=== PATIENT | male | born 1960 | race American Indian/Alaskan Native ===

== ENCOUNTER 2017-10-08 05:07 | Inpatient (IN) | payer SELFPAY ==
[2017-10-08] MEDS ORDERED: ASPIRIN PO ONE (05:39)
[2017-10-08 05:57] LABS: Basophils % (Auto) 0.4 % (0.0-1.8); Eosinophils # (Auto) 0.2 K/mm3 (0.0-0.4); Eosinophils % (Auto) 2.5 % (0.0-4.3); Hematocrit 41.9 % (35.5-45.6); Hemoglobin 13.8 gm/dl (11.8-15.2); Lymphocytes # (Auto) 1.9 K/mm3 (1.2-5.4); Lymphocytes % (Auto) 22.3 % (13.4-35.0); Mean Corpuscular HGB Conc 33 % (32-34); Mean Corpuscular Hemoglobin 30 pg (28-32); Mean Corpuscular Volume 89 fl (84-94); Monocytes % (Auto) 11.6 % (0.0-7.3); Platelet Count 275 K/mm3 (140-440); Red Blood Count 4.68 M/mm3 (3.65-5.03); Red Cell Distribution Width 12.8 % (13.2-15.2)
[2017-10-08 06:12] LABS: BUN/Creatinine Ratio 18; Blood Urea Nitrogen 16 mg/dL (9-20); Calcium 9.1 mg/dL (8.4-10.2); Hemolysis Index 0
--- NOTE | 2017-10-08 10:19 | Emergency Department Report ---
ED Chest Pain HPI - General Chief Complaint: Chest Pain Stated Complaint: CP Time Seen by Provider: 10/08/17 10:17 Source: patient Mode of arrival: Ambulatory Limitations: No Limitations - History of Present Illness Initial Comments: She is a 56-year-old male that presents to the emergency room with complaints of chest pain 3 days. Patient states that the pain is radiating to his neck. Patient's also complains of a sore throat. Patient denies diaphoresis and shortness of breath. However patient states pain is worse with inspiration. Patient states no change in pain with palpation. Patient states the pain is better with rest. MD Complaint: chest pain -: Sudden, days(s) (3 days) Onset: during rest Pain Location: substernal, left chest Pain Radiation: neck Severity: moderate Severity scale (0 -10): 6 Quality: pressure Consistency: intermittent Improves With: remaining still Worsens With: inspiration, movement Treatments Prior to Arrival: none Aspirin use within the Past 7 Days: (0) No - Related Data Home Medications Medication Instructions Recorded Confirmed Last Taken No Known Home Medications [No 10/08/17 10/08/17 Unknown Reported Home Medications] Allergies Allergy/AdvReac Type Severity Reaction Status Date / Time No Known Allergies Allergy Verified 10/08/17 10:43 Heart Score - HEART Score History: Slightly suspicious EKG: Normal Age: 45-65 Risk factors: No known risk factors Troponin: < normal limit HEART Score: 1 ED Review of Systems ROS: Stated complaint: CP Other details as noted in HPI Comment: All other systems reviewed and negative Constitutional: denies: chills, fever Eyes: denies: eye pain, eye discharge, vision change ENT: denies: ear pain, throat pain Respiratory: denies: cough, shortness of breath, wheezing Cardiovascular: chest pain. denies: palpitations Endocrine: no symptoms reported Gastrointestinal: denies: abdominal pain, nausea, diarrhea Genitourinary: denies: urgency, dysuria Musculoskeletal: denies: back pain, joint swelling, arthralgia Skin: denies: rash, lesions Neurological: denies: headache, weakness, paresthesias Psychiatric: denies: anxiety, depression Hematological/Lymphatic: denies: easy bleeding, easy bruising ED Past Medical Hx - Past Medical History Previous Medical History?: Yes Hx Hypertension: Yes - Surgical History Past Surgical History?: No - Family History Family history: hypertension - Social History Smoking Status: Current Every Day Smoker Substance Use Type: Alcohol - Medications Home Medications: Home Medications Medication Instructions Recorded Confirmed Last Taken Type No Known Home Medications [No 10/08/17 10/08/17 Unknown History Reported Home Medications] ED Physical Exam - General Limitations: No Limitations General appearance: alert, in no apparent distress - Head Head exam: Present: atraumatic, normocephalic - Eye Eye exam: Present: normal appearance - ENT ENT exam: Present: mucous membranes moist - Neck Neck exam: Present: normal inspection - Respiratory Respiratory exam: Present: normal lung sounds bilaterally. Absent: respiratory distress - Cardiovascular Cardiovascular Exam: Present: regular rate, normal rhythm. Absent: systolic murmur, diastolic murmur, rubs, gallop - GI/Abdominal GI/Abdominal exam: Present: soft, normal bowel sounds - Rectal Rectal exam: Present: deferred - Extremities Exam Extremities exam: Present: normal inspection - Back Exam Back exam: Present: normal inspection - Neurological Exam Neurological exam: Present: alert, oriented X3 - Psychiatric Psychiatric exam: Present: normal affect, normal mood - Skin Skin exam: Present: warm, dry, intact, normal color. Absent: rash ED Course Vital Signs 10/08/17 10/08/17 10/08/17 05:30 10:27 10:30 Temperature 98 F Pulse Rate 102 H 96 H 89 Respiratory 16 9 L Rate Blood Pressure 143/95 180/98 O2 Sat by Pulse 99 100 Oximetry 10/08/17 10:45 Temperature Pulse Rate 94 H Respiratory 14 Rate Blood Pressure 180/98 O2 Sat by Pulse 99 Oximetry - Reevaluation(s) Reevaluation #1: Will admit admit patient to rule out ACS. Discussed patient with hospitalist. Hospitalist agreed to admit. 10/08/17 11:35 LEXI score - Lexi Score Age > 65: (0) No Aspirin use within the Past 7 Days: (0) No 3 or more CAD Risk Factors: (0) No 2 or more Angina events in past 24 hrs: (0) No Known CAD with more than 50% Stenosis: (0) No Elevated Cardiac Markers: (0) No ST Deviation Greater than 0.5mm: (0) No LEXI Score: 0 ED Medical Decision Making - Lab Data Result diagrams: 10/08/17 05:42 10/08/17 05:42 - EKG Data -: EKG Interpreted by Me EKG shows normal: sinus rhythm Rate: normal - EKG Data Interpretation: no acute changes, normal EKG - Differential Diagnosis indigestion. Chest pain. ACS. Critical care attestation.: If time is entered above; I have spent that time in minutes in the direct care of this critically ill patient, excluding procedure time. ED Disposition Clinical Impression: Chest pain, Hypertension Disposition: OP ADMIT IP TO THIS HOSP Is pt being admited?: Yes Does the pt Need Aspirin: No Condition: Serious Instructions: Hypertension (ED) Time of Disposition: 11:45
[2017-10-08] MEDS ORDERED: ASPIRIN ONE (10:45)
[2017-10-08] MEDS ORDERED: MORPHINE ONE (13:55)
--- NOTE | 2017-10-08 14:01 | XRay Report ---
PORTABLE CHEST: Chest pain. An AP portable view of the chest demonstrates a normal cardiac contour considering the limits of this technique. The lungs are clear with no evidence of infiltrate, fluid or failure. IMPRESSION: Normal portable chest.
[2017-10-08] MEDS ORDERED: LOPRESSOR IV ONE (14:36)
[2017-10-08] MEDS ORDERED: MORPHINE IV ONE (14:56)
--- NOTE | 2017-10-08 18:12 | History and Physical Report ---
History of Present Illness Date of examination: 10/08/17 Date of admission: 10/08/2017 Chief complaint: Chief complaint: Left-sided chest pain for 3 days History of present illness: History of Present Illness She is a 56-year-old male that presents to the emergency room with complaints of chest pain 3 days. Patient states that the pain is radiating to his neck. Patient's also complains of a sore throat. Patient denies diaphoresis and shortness of breath. However patient states pain is worse with inspiration. Patient states no change in pain with palpation. Patient states the pain is better with rest. Past Medical History Previous Medical History?: Yes Hx Hypertension: Yes Surgical History Past Surgical History?: No Family History Family history: hypertension Social History Smoking Status: Current Every Day Smoker Substance Use Type: Alcohol Medications Home Medications: Home Medications Medication Instructions Recorded Confirmed Last Taken Type No Known Home Medications [No 10/08/17 10/08/17 Unknown History Reported Home Medications] Review of Systems ROS: Stated complaint: CP Other details as noted in HPI Comment: All other systems reviewed and negative Constitutional: denies: chills, fever Eyes: denies: eye pain, eye discharge, vision change ENT: denies: ear pain, throat pain Respiratory: denies: cough, shortness of breath, wheezing Cardiovascular: chest pain. denies: palpitations Endocrine: no symptoms reported Gastrointestinal: denies: abdominal pain, nausea, diarrhea Genitourinary: denies: urgency, dysuria Musculoskeletal: denies: back pain, joint swelling, arthralgia Skin: denies: rash, lesions Neurological: denies: headache, weakness, paresthesias Psychiatric: denies: anxiety, depression Hematological/Lymphatic: denies: easy bleeding, easy bruising Medications and Allergies Allergies Allergy/AdvReac Type Severity Reaction Status Date / Time No Known Allergies Allergy Verified 10/08/17 10:43 Home Medications Medication Instructions Recorded Confirmed Last Taken Type No Known Home Medications [No 10/08/17 10/08/17 Unknown History Reported Home Medications] Exam - Constitutional Vitals: Temp Pulse Resp BP Pulse Ox 98 F 81 14 154/127 96 10/08/17 05:30 10/08/17 17:31 10/08/17 17:31 10/08/17 17:31 10/08/17 17:31 General appearance: Present: no acute distress, well-nourished - EENT Eyes: Present: PERRL ENT: hearing intact, clear oral mucosa - Neck Neck: Present: supple, normal ROM - Respiratory Respiratory effort: normal Respiratory: bilateral: CTA - Cardiovascular Heart rate: 80 Rhythm: regular Heart Sounds: Present: S1 & S2. Absent: rub, click - Extremities Extremities: pulses symmetrical, No edema Peripheral Pulses: within normal limits - Abdominal General gastrointestinal: Present: soft, non-tender, non-distended, normal bowel sounds Male genitourinary: Present: normal - Integumentary Integumentary: Present: clear, warm, dry - Musculoskeletal Musculoskeletal: gait normal, strength equal bilaterally - Psychiatric Psychiatric: appropriate mood/affect, intact judgment & insight - Neurologic Neurologic: CNII-XII intact, moves all extremities Results - Labs CBC & Chem 7: 10/09/17 05:01 10/09/17 05:01 Labs: Laboratory Last Values WBC 8.4 K/mm3 (4.5-11.0) 10/08/17 05:42 RBC 4.68 M/mm3 (3.65-5.03) 10/08/17 05:42 Hgb 13.8 gm/dl (11.8-15.2) 10/08/17 05:42 Hct 41.9 % (35.5-45.6) 10/08/17 05:42 MCV 89 fl (84-94) 10/08/17 05:42 MCH 30 pg (28-32) 10/08/17 05:42 MCHC 33 % (32-34) 10/08/17 05:42 RDW 12.8 % (13.2-15.2) L 10/08/17 05:42 Plt Count 275 K/mm3 (140-440) 10/08/17 05:42 Lymph % (Auto) 22.3 % (13.4-35.0) 10/08/17 05:42 Tyler % (Auto) 11.6 % (0.0-7.3) H 10/08/17 05:42 Eos % (Auto) 2.5 % (0.0-4.3) 10/08/17 05:42 Baso % (Auto) 0.4 % (0.0-1.8) 10/08/17 05:42 Lymph # 1.9 K/mm3 (1.2-5.4) 10/08/17 05:42 Tyler # 1.0 K/mm3 (0.0-0.8) H 10/08/17 05:42 Eos # 0.2 K/mm3 (0.0-0.4) 10/08/17 05:42 Baso # 0.0 K/mm3 (0.0-0.1) 10/08/17 05:42 Seg Neutrophils % 63.2 % (40.0-70.0) 10/08/17 05:42 Seg Neutrophils # 5.3 K/mm3 (1.8-7.7) 10/08/17 05:42 Sodium 138 mmol/L (137-145) 10/08/17 05:42 Potassium 4.0 mmol/L (3.6-5.0) 10/08/17 05:42 Chloride 94.5 mmol/L (98-107) L 10/08/17 05:42 Carbon Dioxide 30 mmol/L (22-30) 10/08/17 05:42 Anion Gap 18 mmol/L 10/08/17 05:42 BUN 16 mg/dL (9-20) 10/08/17 05:42 Creatinine 0.9 mg/dL (0.8-1.5) 10/08/17 05:42 Estimated GFR > 60 ml/min 10/08/17 05:42 BUN/Creatinine Ratio 18 % 10/08/17 05:42 Glucose 101 mg/dL (75-100) H 10/08/17 05:42 Calcium 9.1 mg/dL (8.4-10.2) 10/08/17 05:42 Troponin T < 0.010 ng/mL (0.00-0.029) 10/08/17 11:39 Short CBC 10/09/17 Range/Units 05:01 WBC 7.7 (4.5-11.0) K/mm3 Hgb 13.6 (11.8-15.2) gm/dl Hct 40.2 (35.5-45.6) % Plt Count 250 (140-440) K/mm3 BMP 10/09/17 05:01 Sodium 139 Potassium 4.2 Chloride 98.8 Carbon Dioxide 24 BUN 15 Creatinine 0.8 Glucose 84 Calcium 8.8 Cardiac Enzymes 10/08/17 10/08/17 10/08/17 Range/Units 08:27 11:39 18:26 Troponin T < 0.010 < 0.010 < 0.010 (0.00-0.029) ng/mL 10/09/17 10/09/17 Range/Units 00:23 05:01 Troponin T < 0.010 < 0.010 (0.00-0.029) ng/mL Liver Function 10/09/17 Range/Units 05:01 Total Bilirubin 0.40 (0.1-1.2) mg/dL AST 25 (5-40) units/L ALT 29 (7-56) units/L Alkaline Phosphatase 60 (35-129) units/L Albumin 3.2 L (3.9-5) g/dL Assessment and Plan Advance Directives: Yes (full code) VTE prophylaxis?: Chemical Plan of care discussed with patient/family: Yes - Patient Problems (1) Chest pain Current Visit: Yes Status: Acute Qualifiers: Chest pain type: unspecified Qualified Code(s): R07.9 - Chest pain, unspecified Plan to address problem: Chest pain workup. Serial cardiac enzymes and Lexiscan in the morning (2) Hypertension Current Visit: Yes Status: Acute Qualifiers: Hypertension type: essential hypertension Qualified Code(s): I10 - Essential (primary) hypertension Plan to address problem: Newly diagnosed hypertension.. Patient started on losartan 100 daily (3) DVT prophylaxis Current Visit: Yes Status: Acute Plan to address problem: On heparin
[2017-10-08] MEDS ORDERED: MORPHINE IV PRN (18:13)
[2017-10-08] MEDS ORDERED: SODIUM CHLORIDE FLUSH SYRINGE 10 ML IV PRN (18:13)
[2017-10-08] MEDS ORDERED: AMBIEN PO PRN (18:13)
[2017-10-08] MEDS ORDERED: TYLENOL PO PRN (18:13)
[2017-10-08] MEDS ORDERED: ZOFRAN IV PRN (18:13)
[2017-10-08] MEDS ORDERED: PERCOCET 5/325 PO PRN (18:13)
[2017-10-08] MEDS ORDERED: DILAUDID IV PRN (18:13)
[2017-10-08] MEDS: MORPHINE IV PRN (22:52)
[2017-10-08] MEDS: SODIUM CHLORIDE FLUSH SYRINGE 10 ML IV SCH (22:56)
[2017-10-08] MEDS: HEPARIN SUB-Q SCH (22:56)
--- NOTE | 2017-10-08 23:58 | Event Note ---
Date: 10/08/17
[2017-10-09 05:56] LABS: Basophils % (Auto) 0.2 % (0.0-1.8); Eosinophils # (Auto) 0.2 K/mm3 (0.0-0.4); Eosinophils % (Auto) 2.6 % (0.0-4.3); Hematocrit 40.2 % (35.5-45.6); Hemoglobin 13.6 gm/dl (11.8-15.2); Lymphocytes # (Auto) 2.3 K/mm3 (1.2-5.4); Lymphocytes % (Auto) 29.9 % (13.4-35.0); Mean Corpuscular HGB Conc 34 % (32-34); Mean Corpuscular Hemoglobin 30 pg (28-32); Mean Corpuscular Volume 89 fl (84-94); Monocytes # (Auto) 1.1 K/mm3 (0.0-0.8); Monocytes % (Auto) 14.1 % (0.0-7.3); Platelet Count 250 K/mm3 (140-440); Red Blood Count 4.54 M/mm3 (3.65-5.03); Red Cell Distribution Width 12.5 % (13.2-15.2)
[2017-10-09 06:20] LABS: Alanine Aminotransferase 29 units/L (7-56); Albumin 3.2 g/dL (3.9-5); BUN/Creatinine Ratio 19; Blood Urea Nitrogen 15 mg/dL (9-20); Calcium 8.8 mg/dL (8.4-10.2); Hemolysis Index 3
[2017-10-09 08:01] VITALS: BP 148/100
[2017-10-09] MEDS: COZAAR PO SCH ×2 (08:53→11:34)
[2017-10-09] MEDS ORDERED: LEXISCAN IV ONE ×2 (09:34→09:37)
[2017-10-09] MEDS: MORPHINE IV PRN (11:31)
[2017-10-09] MEDS: HEPARIN SUB-Q SCH (11:32)
[2017-10-09] MEDS: SODIUM CHLORIDE FLUSH SYRINGE 10 ML IV SCH (11:34)
--- NOTE | 2017-10-09 13:39 | Discharge Summary ---
Providers - Providers Date of Admission: 10/08/17 18:13 Date of discharge: 10/09/17 Attending physician: MARIO BRIDGES 10/09/17 13:14 Consult to Physician [CONS] Routine Comment: Consulting Provider: YENY ROQUE Physician Instructions: Reason For Exam: OP dysphagia Primary care physician: REHABILITATION SERVICES DIRECTOR Hospitalization Condition: Stable Hospital course: ([employer] crashed and i lost my entire note), in brief -cp gerd related -oral thrush -odynophagia -etoh abuse -GERD/gastritis -tobacco dep He decline hiv testing, because he had recently Just buried his mother last weekend. Disposition: DC-01 TO HOME OR SELFCARE Time spent for discharge: 35 minutes Core Measure Documentation - Palliative Care Palliative Care/ Comfort Measures: Not Applicable - Core Measures Any of the following diagnoses?: none - VTE Discharge Requirements Deep Vein Thrombosis/Pulmonary Embolism Present on Admission: No Has pt received <5 days of overlap therapy or INR<2.0: No Anticoagulant overlap therapy prescribed at discharge: No Contraindication No Overlap Therapy order at DC: Not Indicated Exam - Constitutional Vitals: Temp Pulse Resp BP Pulse Ox 98.1 F 89 18 148/100 99 10/09/17 11:48 10/09/17 11:48 10/09/17 12:01 10/09/17 11:48 10/09/17 11:48 General appearance: Present: no acute distress, mild distress - EENT Eyes: Present: PERRL, EOM intact ENT: hearing intact, thrush, no clear oral mucosa - Neck Neck: Present: supple, normal ROM - Respiratory Respiratory effort: normal Respiratory: bilateral: CTA - Cardiovascular Rhythm: regular Heart Sounds: Present: S1 & S2 - Extremities Extremities: no ischemia, pulses intact Peripheral Pulses: within normal limits - Abdominal General gastrointestinal: Present: soft, non-tender, non-distended, normal bowel sounds - Integumentary Integumentary: Present: clear, warm, dry - Musculoskeletal Musculoskeletal: strength equal bilaterally - Psychiatric Psychiatric: appropriate mood/affect - Neurologic Neurologic: CNII-XII intact, no focal deficits Plan Activity: other (no strenous activity) Diet: clear liquids (with high calorie Boost Shakes TID) Special Instructions: smoking cessation Additional Instructions: Need repeat HIV with GI or pcp Follow up with: YENY ROQUE MD [Staff Physician] - 7 Days [facility] [Provider Group] - 7 Days Prescriptions: Fluconazole [Diflucan TAB] 200 mg PO QDAY #14 tablet Nystas/Diphen/Xyl Visc/Mylanta [Magic Mouthwash] 15 ml PO TID PRN #7 day PRN Reason: Pain Pantoprazole [Protonix TAB] 40 mg PO BID #28 tablet
[2017-10-09] MEDS ORDERED: PROTONIX PO SCH (14:00)
[2017-10-09] MEDS ORDERED: MAGIC MOUTHWASH PO SCH (14:00)
[2017-10-09] MEDS ORDERED: DIFLUCAN PO SCH (14:00)
--- NOTE | 2017-10-09 16:48 | Treadmill Report ---
MYOCARDIAL PERFUSION IMAGING STUDY Resting images showed uniform radioisotope activity throughout the myocardium. On post-Lexiscan, repeat images revealed homogeneous radioisotope activity throughout the myocardium. On gated scan, ejection fraction was noted to be 65%. There is no evidence of transient ischemic dilatation. IMPRESSION: 1. Normal myocardial perfusion scan without any ischemia. 2. Preserved ejection fraction of 65%. JOB# [id number] BUTCH/MAZIN
== END 2017-10-09 16:27 | disposition home or self-care (01) | DRG 392 ==
LOC: ED 05:07 → 4A 18:13
PROVIDERS: ADMIT Internal Medicine; ATTEND Internal Medicine
DX: K21.9 Gastro-esophageal reflux disease without esophagitis (principal); B37.0 Candidal stomatitis; I10 Essential (primary) hypertension; F17.200 Nicotine dependence, unspecified, uncomplicated; R13.10 Dysphagia, unspecified; Z82.49 Family history of ischemic heart disease and other diseases of the circulatory system
CPT/HCPCS: 36415; 71045; 78452; 80048; 80053; 83036; 84484; 85025; 93005; 93010; 93017; 96374; 96375; A9502; J1644; J2270; J2785